=== PATIENT | male | born 1960 | race Caucasian/White ===

== ENCOUNTER → 2016-07-01 | Outpatient (CLI) | payer BC ==
--- NOTE | 2016-07-01 17:52 | CT ---
EXAMINATION TYPE: CT angio head DATE OF EXAM: 07/01/2016 5:34 PM COMPARISON: NONE HISTORY: Left sided headache x 6 months. Family history of aneurysm. CT DLP: 1369.60 mGycm Automated exposure control for dose reduction was used. TECHNIQUE: Performed without and with IV Contrast, patient injected with 100 mL of Omnipaque 350. There are 3-D post processed images.. FINDINGS: There is arterial flow in the anterior middle and posterior cerebral arteries. There is arterial flow in the vertebrobasilar artery system. There is no mass effect. There is no evidence of aneurysm or n eovascularity. There is no evidence for hemodynamically significant stenosis. There is normal contras t opacification of the venous sinuses. There is flow in both distal internal carotid arteries. There is very little if any flow in posterior communicating arteries. IMPRESSION: NEGATIVE CT ANGIOGRAM OF THE BRAIN.
== END | disposition home or self-care (01) ==
LOC: RADCTMAIN 16:54
PROVIDERS: ATTEND Internal Medicine
DX: R51 Headache (principal); R55 Syncope and collapse; Z82.49 Family history of ischemic heart disease and other diseases of the circulatory system
CPT/HCPCS: 70496; Q9967

== ENCOUNTER 2016-07-08 07:37 | Inpatient (IN) | payer BC ==
[2016-07-08] MEDS ORDERED: ASPIRIN 81 MG CHEW PO STA (07:43)
[2016-07-08] MEDS ORDERED: NITROGLYCERIN OINT 1 INCH/GM PACKET TOPICAL STA (07:43)
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
[2016-07-08 08:05] LABS: Basophils % (A) 0 %; CH 30.6; CHCM 34.4; Eosinophils # (A) 0.1 k/uL (0-0.7); Eosinophils % (A) 2 %; HCT 45.1 % (39.0-53.0); HDW 2.84; HGB 15.6 gm/dL (13.0-17.5); Luc # (Auto) 0.14; Luc % (Auto) 2; Lymphocytes # (A) 1.4 k/uL (1.0-4.8); Lymphocytes % (A) 22 %; MCH 30.9 pg (25.0-35.0); MCHC 34.6 g/dL (31.0-37.0); MCV 89.3 fL (80.0-100.0); Mean Platelet Volume 6.9; Monocytes # (A) 0.4 k/uL (0-1.0); Monocytes % (A) 6 %; Neutrophils # (A) 4.3 k/uL (1.3-7.7); Neutrophils % (A) 68 %; RBC 5.05 m/uL (4.30-5.90); WBC 6.3 k/uL (3.8-10.6); WBC (Perox) 6.38
[2016-07-08 08:08] LABS: INR 1.1 (<1.1); Partial Thromboplastin Time 25.2 sec (22.0-30.0); Prothrombin Time 10.6 sec (9.0-12.0)
[2016-07-08 08:09] LABS: ALT 27 U/L (21-72); AST 30 U/L (17-59); Alkaline Phosphatase 67 U/L (38-126); Anion Gap 8 mmol/L; Blood Urea Nitrogen 13 mg/dL (9-20); Calcium 8.8 mg/dL (8.4-10.2); Carbon Dioxide 23 mmol/L (22-30); Chloride 110 mmol/L (98-107); Glucose 98 mg/dL (74-99); Magnesium 1.9 mg/dL (1.6-2.3); Non-African American GFR(MDRD) >60 (>60 ml/min/1.73 sqM); Sodium 141 mmol/L (137-145); Total Bilirubin 1.3 mg/dL (0.2-1.3); Total Protein 6.8 g/dL (6.3-8.2)
--- NOTE | 2016-07-08 08:21 | XR ---
EXAMINATION TYPE: XR chest 2V DATE OF EXAM: 07/08/2016 8:01 AM COMPARISON: None HISTORY: 56-year-old male with chest pain TECHNIQUE: PA and lateral views FINDINGS: The cardiomediastinal silhouette, aorta, and pulmonary vasculature are within normal limits. There is some strandy atelectasis in the lower lungs. No consolidation or pleural effusion. IMPRESSION: No acute cardiopulmonary process.
[2016-07-08 08:47] LABS: Creatine Kinase MB 10.7 ng/mL (0.0-2.4)
[2016-07-08] MEDS ORDERED: HEPARIN SODIUM,PORCINE 5,000 UNIT/ML 1 ML VIAL IV ONE (08:54)
[2016-07-08] MEDS ORDERED: HEPARIN SODIUM,PORCINE 5,000 UNIT/ML 1 ML VIAL IV PRN (08:54)
[2016-07-08] MEDS ORDERED: HEPARIN SODIUM,PORCINE/D5W PMX 25,000 UNIT in DEXTROSE/WATER 1 500ML.BAG IV SCH (09:00)
[2016-07-08] MEDS ORDERED: NITROGLYCERIN SL TABS 0.4 MG TAB SUBLINGUAL PRN ×2 (09:01→10:58)
[2016-07-08] MEDS ORDERED: ASPIRIN 325 MG TAB PO STA (10:58)
[2016-07-08] MEDS ORDERED: SODIUM CHLORIDE 0.9% 1,000 ML in EMPTY BAG 1 BAG IV ONE (10:58)
[2016-07-08] MEDS ORDERED: ALPRAZolam 0.25 MG TAB PO PRN (10:58)
[2016-07-08] MEDS ORDERED: ALPRAZolam 0.5 MG TAB PO PRN (10:58)
[2016-07-08] MEDS ORDERED: ATORVASTATIN 80 MG TAB PO STA (10:58)
[2016-07-08] MEDS: ATORVASTATIN 80 MG TAB PO SCH (11:58)
[2016-07-08] MEDS: NITROGLYCERIN OINT 1 INCH/GM PACKET TOPICAL SCH ×3 (11:59→23:15)
[2016-07-08] MEDS ORDERED: oxyCODONE-APAP 5-325MG 1 EACH TAB PO PRN (13:08)
[2016-07-08] MEDS ORDERED: IV FLUID CONTINUATION 1,000 ML IV ONE (13:15)
[2016-07-08] MEDS ORDERED: VERAPAMIL 2.5 MG/ML 2 ML AMP ONE (13:23)
[2016-07-08] MEDS ORDERED: LIDOCAINE 2% INJ 20 MG/ML (20 ML MDV) ONE (13:23)
[2016-07-08] MEDS ORDERED: MIDAZOLAM 2 MG/2 ML VIAL ONE (13:24)
[2016-07-08] MEDS ORDERED: HEPARIN SODIUM 1,000 UNIT/ML VIAL ONE (13:24)
[2016-07-08] MEDS ORDERED: diphenhydrAMINE 50 MG/ML 1 ML VIAL ONE (13:24)
[2016-07-08] MEDS: MIDAZOLAM 2 MG/2 ML VIAL IV ONE ×2 (14:02→14:06)
[2016-07-08] MEDS ORDERED: diphenhydrAMINE 50 MG/ML 1 ML VIAL IVP ONE (14:03)
[2016-07-08] MEDS ORDERED: LIDOCAINE 2% INJ 20 MG/ML SQ ONE (14:05)
[2016-07-08] MEDS ORDERED: VERAPAMIL SYRINGE (5 MG/10 ML) IV ONE (14:07)
[2016-07-08] MEDS ORDERED: HEPARIN SODIUM 1,000 UNIT/ML VIAL IV ONE (14:08)
[2016-07-08] MEDS ORDERED: VERAPAMIL SYRINGE (5 MG/10 ML) INTRAARTER ONE (14:25)
[2016-07-08] MEDS ORDERED: RX INFO: IV CONTRAST WAS GIVEN 1 EACH MISC MISCELLANE PRN (14:33)
[2016-07-08] MEDS ORDERED: IOHEXOL 350 MG/ML 100 ML BOTTLE INJ ONE (14:35)
[2016-07-08] MEDS: SODIUM CHLORIDE 0.9% 1,000 ML IV SCH ×2 (15:17→23:15)
[2016-07-08] MEDS: METOPROLOL TARTRATE 12.5 MG TAB PO SCH (15:17)
[2016-07-08] MEDS: NICOTINE 14MG/24HR PATCH TRANSDERM SCH (15:18)
[2016-07-08 15:45] LABS: Appearance,Urine Clear (Clear); Bilirubin,Urine Negative (Negative); Glucose,Urine (UA) Negative (Negative); Ketones,Urine 1+ (Negative); Leukocyte Esterase,Urine Negative (Negative); Nitrite,Urine Negative (Negative); PH, Urine 6.5 (5.0-8.0); Protein,Urine Negative (Negative); Specific Gravity,Urine 1.033 (1.001-1.035); UA Billing (MACRO vs. MICRO) CHEM; Urobilinogen,Urine <2.0 mg/dL (<2.0)
[2016-07-08 16:09] LABS: Creatine Kinase MB 9.5 ng/mL (0.0-2.4); Troponin I 2.2 ng/mL (0.000-0.034)
[2016-07-08] MEDS: ENOXAPARIN 80 MG/0.8 ML SYRINGE SQ SCH (17:49)
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
[2016-07-08 20:57] LABS: Creatine Kinase MB 6.4 ng/mL (0.0-2.4); Troponin I 1.84 ng/mL (0.000-0.034)
[2016-07-09] MEDS: ENOXAPARIN 80 MG/0.8 ML SYRINGE SQ SCH (06:16)
[2016-07-09] MEDS: NITROGLYCERIN OINT 1 INCH/GM PACKET TOPICAL SCH ×2 (06:16→10:48)
[2016-07-09 07:11] LABS: Basophils % (A) 1 %; CH 30.3; CHCM 33.4; Eosinophils # (A) 0.2 k/uL (0-0.7); Eosinophils % (A) 3 %; HCT 45.2 % (39.0-53.0); HDW 2.83; Luc # (Auto) 0.16; Luc % (Auto) 3; Lymphocytes # (A) 1.6 k/uL (1.0-4.8); Lymphocytes % (A) 27 %; MCH 30.3 pg (25.0-35.0); MCHC 33.2 g/dL (31.0-37.0); MCV 91.3 fL (80.0-100.0); Mean Platelet Volume 6.5; Monocytes # (A) 0.4 k/uL (0-1.0); Monocytes % (A) 6 %; Neutrophils # (A) 3.5 k/uL (1.3-7.7); Neutrophils % (A) 61 %; RBC 4.95 m/uL (4.30-5.90); WBC 5.8 k/uL (3.8-10.6); WBC (Perox) 5.66
[2016-07-09 07:33] LABS: Anion Gap 6 mmol/L; Blood Urea Nitrogen 13 mg/dL (9-20); Calcium 8.7 mg/dL (8.4-10.2); Carbon Dioxide 26 mmol/L (22-30); Chloride 111 mmol/L (98-107); Cholesterol 152 mg/dL (<200); Glucose 100 mg/dL (74-99); HDL Cholesterol 29 mg/dL (40-60); Non-African American GFR(MDRD) >60 (>60 ml/min/1.73 sqM); Potassium 5.2 mmol/L (3.5-5.1); Sodium 143 mmol/L (137-145); Triglycerides 96 mg/dL (<150)
--- NOTE | 2016-07-09 08:46 | CC ---
DATE OF SERVICE: 07/08/2016 PROCEDURE: Left heart catheterization, coronary angiography and left ventriculography. Performed by Dr. Roxana Luong. CLINICAL INFORMATION: Mr. Vicente Maria is a 56-year-old gentleman who came into the hospital with episode of chest and neck and jaw discomfort with a mild troponin elevation, but no EKG changes. He was advised cardiac catheterization. He has history of smoking and family history of premature CAD as his major risk factors. PROCEDURE NOTE: Under local anesthesia and strict aseptic precautions, a 6 Tajik introducer was placed in the right radial artery. Using an Ultimate I catheter, I performed selective coronary angiography of both coronary arteries and a pigtail catheter was used to perform an LV gram. The catheter and sheath was taken out and the TR band applied as per protocol. Saturation of the fingers of the right hand was 95%. Patient tolerated the procedure well without complications. He received 1500 units of heparin intravenously. CARDIAC CATHETERIZATION FINDINGS: The left ventricular end-diastolic pressure was about 8 mmHg without appreciable change after the LV gram and there was no gradient across aortic valve. CORONARY ANGIOGRAPHIC FINDINGS RIGHT CORONARY ARTERY: Technically a large dominant vessel; has about a 30% to 40% stenosis in the proximal portion and another 30% to 40% at the junction of the middle and proximal one-third and distally the caliber improves. There are minor diffuse irregularities and it bifurcates into a large PDA and PLV, both of which supply a sizable amount of myocardium. The RCA is therefore a very dominant vessel, and stool 30% to 40% proximal and mid-lesions. LEFT MAIN CORONARY ARTERY: This is a very long vessel, free of significant disease, bifurcates into LAD and circumflex. There is a small tiny ramus noted as well. Left main itself tapers about a 10% narrowing distally, but no significant lesion. LEFT ANTERIOR DESCENDING CORONARY ARTERY: Good caliber vessel; gives off a very high diagonal branch proximally and then several to smaller diagonal branches and septal branches, runs all the way to the apex. It curves over the apex and supplies the inferoapical portion of the left ventricle. LAD is a large system, has minor diffuse irregularities of about 20% to 30%, but no significant lesion is noted. The large proximal diagonal branch is also free of significant disease. LEFT POSTERIOR CIRCUMFLEX CORONARY ARTERY: Technically a small caliber, small distribution vessel, which supplies a limited area of myocardium, has minor irregularities. RAMUS OR A HIGH OBTUSE MARGINAL: This is a very small branch that seems to be subtotally occluded, has a limited amount of myocardium being supplied by this. It is less than 1 mm vessel. This may represent a myocardial injury that patient sustained with a troponin elevation and chest discomfort. There is subtotal occlusion of this vessel with a good flow and very small caliber. LEFT VENTRICULOGRAM: This was performed in 30 degree CASTELAN projection and revealed left ventricle is of normal size and good systolic function without segmental wall motion abnormality, ejection fraction 60% by visual inspection. There is no mitral regurgitation. FINAL IMPRESSION: This patient has a right dominant system. There is a small ramus or a high first obtuse marginal that is very small in caliber and distribution, a subtotal lesion, and this may represent a troponin leak. The left anterior descending artery is free of significant disease, non-distribution vessels, circumflex is small and disease-free. Right coronary artery is a large caliber, large distribution vessel, has about a 30% to 40% proximal and mid lesions. Filling pressures are normal, ejection fraction is normal. RECOMMENDATIONS: Aggressive medical therapy with risk factor modifications, smoking cessation, beta kimberli, statin agent and aspirin is advised. The patient will be discharged tomorrow. Risk factor modification issues were discussed. This patient received conscious sedation for a total duration of 30 minutes with a combination of Versed and Benadryl. His oxygen saturation was monitored closely.
--- NOTE | 2016-07-09 08:50 | LTR ---
July 08, 2016 RE: Vicente Maria Dear Dr. Dos Santos: Thank you for the opportunity to participate in the care of Mr. Vicente Maria. I am pleased to report to you that he has no significant obstructive disease that requires intervention but he has diffuse disease and requests aggressive risk factor modification. He presented with a small elevation of troponin. I will perform echo and additional troponins and continue Lovenox for now. Aggressive risk factor modification and smoking cessation, statin agents and aspirin were advised. Thank you for your referral and please call for questions. With kindest regards. Sincerely yours, YENI COHEN MD
[2016-07-09] MEDS ORDERED: ASPIRIN 81 MG CHEW PO SCH (09:00)
[2016-07-09] MEDS ORDERED: ASPIRIN 325 MG TAB PO SCH (09:00)
[2016-07-09] MEDS: METOPROLOL TARTRATE 12.5 MG TAB PO SCH (10:30)
[2016-07-09] MEDS: ATORVASTATIN 80 MG TAB PO SCH (10:31)
[2016-07-09] MEDS: NICOTINE 14MG/24HR PATCH TRANSDERM SCH (10:31)
[2016-07-09 13:04] VITALS: BP 123/84; PULSE 60; RESP 18
[2016-07-09 13:12] VITALS: TEMP 98.1
--- NOTE | 2016-07-09 14:16 | P.PN ---
Subjective Principal diagnosis: Non-STEMI This is a pleasant 56-year-old gentleman who presented to the hospital with symptoms of chest pressure, he ruled in for non-Q-wave myocardial infarction. He was taken to the cardiac catheterization lab yesterday by Dr. Jong Luong, cardiac catheterization revealed a right dominant system. There was a small ramus or high first obtuse marginal branch very small in caliber with a subtotal lesion which revealed may represent the troponin leak. The LAD was free of any significant disease, circumflex small and disease-free. Right coronary artery is a large caliber vessel that has about a 30-40% proximal and mid lesion. Aggressive medical therapy was advised. Echocardiogram with Doppler study is pending. Patient was seen and examined this morning, denies any chest pain or difficulty in breathing. He has been up ambulating without any difficulty. Objective - Vital Signs Vital signs: Vital Signs Temp 98.1 F 07/09/16 12:00 Pulse 60 07/09/16 12:00 Resp 18 07/09/16 12:00 BP 123/84 07/09/16 12:00 Pulse Ox 97 07/09/16 12:00 Intake & Output 07/08/16 07/09/16 07/09/16 18:59 06:59 18:59 Intake Total 1419 380 200 Output Total 350 1400 1700 Balance 1069 -1020 -1500 Weight 86.3 kg 86.3 kg Intake: IV 100 Intake, IV Titration 959 Amount Heparin Sodium,Porcine/ 59 D5w Pmx 25,000 unit In Dextrose/Water 1 500ml. bag @ 11.604 UNITS/KG/HR 20 mls/hr IV .Q24H ALEXANDRA Rx #:[id number] Sodium Chloride 0.9% 1, 900 000 ml @ 100 mls/hr IV . Q10H ALEXANDRA Rx#:[id number] Oral 360 380 200 Output: Urine 350 1400 1700 Other: Voiding Method Toilet Toilet Urinal Urinal - Exam PHYSICAL EXAMINATION: HEENT: Head is atraumatic, normocephalic. Pupils equal, round. Neck is supple. There is no elevated jugular venous pressure. HEART EXAMINATION: Heart S1, S2 normal. No murmur or gallop heard. CHEST EXAMINATION: Lungs are clear to auscultation and precussion. No chest wall tenderness is noted on palpation or with deep breathing. ABDOMEN: Soft, nontender. Bowel sounds are heard. No organomegaly noted. Right radial site clean and dry, good distal pulse. No hematoma. EXTREMITIES: 2+ peripheral pulses with no evidence of peripheral edema and no calf tenderness noted. NEUROLOGIC patient is awake, alert and oriented -3. . - Labs CBC & Chem 7: 07/09/16 06:36 07/09/16 06:36 Labs: Abnormal Lab Results - Last 24 Hours (Table) 07/08/16 07/08/16 07/08/16 Range/Units 15:07 15:30 19:42 Potassium (3.5-5.1) mmol/L Chloride (98-107) mmol/L Glucose (74-99) mg/dL Total Creatine Kinase 182 H (55-170) U/L CK-MB (CK-2) 9.5 H* 6.4 H* (0.0-2.4) ng/mL Troponin I 2.200 H* 1.840 H* (0.000-0.034) ng/mL LDL Cholesterol, Calc (0-99) mg/dL HDL Cholesterol (40-60) mg/dL Urine Ketones 1+ H (Negative) U Marijuana (THC) Screen Detected H (NotDetected) 07/09/16 Range/Units 06:36 Potassium 5.2 H (3.5-5.1) mmol/L Chloride 111 H (98-107) mmol/L Glucose 100 H (74-99) mg/dL Total Creatine Kinase (55-170) U/L CK-MB (CK-2) (0.0-2.4) ng/mL Troponin I (0.000-0.034) ng/mL LDL Cholesterol, Calc 104 H (0-99) mg/dL HDL Cholesterol 29 L (40-60) mg/dL Urine Ketones (Negative) U Marijuana (THC) Screen (NotDetected) Assessment and Plan (1) Smoking Status: Acute (2) S/P cardiac catheterization Status: Acute (3) NSTEMI (non-ST elevated myocardial infarction) Status: Acute Plan: From cardiology's perspective, patient may be able to be discharged home today. We'll make him a follow-up appointment in the office with Dr. Jong Luong next Friday. We will also obtain lytes BUN and creatinine in one week. Potassium level today 5.2, creatinine 0.8. Patient will be discharged home on aspirin 81 mg daily, Lipitor 80 mg daily, metoprolol tartrate 12-1/2 mg daily, nicotine patch, no NAYLA inhibitor at this time because of elevated potassium. DNP note has been reviewed, I agree with a documented findings and plan of care. Patient was seen and examined.
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
--- NOTE | 2016-07-11 10:16 | ECHOF ---
Referral Reason:nstemi MEASUREMENTS -------- HEIGHT: 182.9 cm WEIGHT: 86.2 kg BP: 123/78 RVIDd: 2.8 cm (< 3.3) IVSd: 1.1 cm (0.6 - 1.1) LVIDd: 5.1 cm (3.9 - 5.3) LVPWd: 0.9 cm (0.6 - 1.1) IVSs: 1.2 cm LVIDs: 4.4 cm LVPWs: 1.5 cm LAESV Index (A-L): 21.07 ml/m Ao Diam: 3.0 cm (2.0 - 3.7) AV Cusp: 2.2 cm (1.5 - 2.6) LA Diam: 3.5 cm (2.7 - 3.8) MV EXCURSION: 21.518 mm (> 18.000) MV EF SLOPE: 94 mm/s (70 - 150) EPSS: 1.1 cm MV E Chad: 0.53 m/s MV DecT: 238 ms MV A Chad: 0.69 m/s MV E/A Ratio: 0.77 RAP: 5.00 mmHg RVSP: 12.25 mmHg FINDINGS -------- Sinus rhythm. This was a technically adequate study. There is borderline concentric left ventricular hypertrophy. Overall left ventricular systolic function is low-normal with, an EF between 50 - 55 %. Basal inferior LV wall motion is hypokinetic. The right ventricle is normal in size. Normal LA size by volume 22+/-6 ml/m2. The right atrial size is normal. There is mild aortic valve sclerosis. There is no evidence of aortic regurgitation. Mild mitral regurgitation is present. Mild tricuspid regurgitation present. There is no evidence of pulmonary hypertension. The right ventricular systolic pressure, as measured by Doppler, is 12.25mmHg. There is no pulmonic regurgitation present. The aortic root size is normal. There is no pericardial effusion. CONCLUSIONS -------- 1. There is borderline concentric left ventricular hypertrophy. 2. Overall left ventricular systolic function is low-normal with, an EF between 50 - 55 %. 3. Basal inferior LV wall motion is hypokinetic. 4. There is mild aortic valve sclerosis. 5. Mild mitral regurgitation is present. 6. Mild tricuspid regurgitation present. 7. There is no evidence of pulmonary hypertension. 8. The right ventricular systolic pressure, as measured by Doppler, is 12.25mmHg. CODE AND TEST CLERK: Meenu Ferguson RDCS
== END 2016-07-09 15:19 | disposition home or self-care (01) | DRG 282 ==
LOC: EC 07:37 → 6SEL 09:01
PROVIDERS: ADMIT Hospitalist; ATTEND Hospitalist
PROC: B2111ZZ Fluoroscopy of Multiple Coronary Arteries using Low Osmolar Contrast (ICD-10-PCS; 2016-07-08)
PROC: B2151ZZ Fluoroscopy of Left Heart using Low Osmolar Contrast (ICD-10-PCS; 2016-07-08)
PROC: 4A023N7 Measurement of Cardiac Sampling and Pressure, Left Heart, Percutaneous Approach (ICD-10-PCS; principal; 2016-07-08 13:15)
DX: I21.4 Non-ST elevation (NSTEMI) myocardial infarction (principal); I44.4 Left anterior fascicular block; F32.9 Major depressive disorder, single episode, unspecified; I25.119 Atherosclerotic heart disease of native coronary artery with unspecified angina pectoris; F17.200 Nicotine dependence, unspecified, uncomplicated; R42 Dizziness and giddiness; K44.9 Diaphragmatic hernia without obstruction or gangrene; R06.00 Dyspnea, unspecified; F12.90 Cannabis use, unspecified, uncomplicated; R79.89 Other specified abnormal findings of blood chemistry; F41.9 Anxiety disorder, unspecified; Z82.49 Family history of ischemic heart disease and other diseases of the circulatory system; Z71.6 Tobacco abuse counseling; Z79.891 Long term (current) use of opiate analgesic; Z82.0 Family history of epilepsy and other diseases of the nervous system; Z87.828 Personal history of other (healed) physical injury and trauma
CPT/HCPCS: 36415; 71020; 80048; 80053; 80061; 80306; 81003; 82550; 82553; 83735; 84484; 85025; 85610; 85730; 93005; 93306; 93458; 96365; 96376; 99291

== ENCOUNTER → 2022-02-08 | Outpatient (CLI) | payer BC ==
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
== END | disposition home or self-care (01) ==
LOC: RADUSWWP 12:56
PROVIDERS: ATTEND Orthopaedic Surgery Foot and Ankle Surgery
DX: I73.9 Peripheral vascular disease, unspecified (principal); M19.072 Primary osteoarthritis, left ankle and foot; M79.672 Pain in left foot; M25.572 Pain in left ankle and joints of left foot
CPT/HCPCS: 93923